=== PATIENT | female | born 1970 | race Caucasian/White ===

== ENCOUNTER 2017-07-28 13:02 | Emergency (ER) | payer BC, OTHER ==
[2017-07-28 13:06] VITALS: BP 199/93; PULSE 85; RESP 20; TEMP 98
[2017-07-28] MEDS ORDERED: DIPH,PERTUS(ACELL)TETVAC-LF 0.5 ML VIAL IM ONE (13:26)
--- NOTE | 2017-07-28 13:29 | ED ---
General Adult HPI - General Chief complaint: Wound/Laceration Stated complaint: laceration Time Seen by Provider: 07/28/17 13:07 Source: patient, RN notes reviewed Mode of arrival: ambulatory Limitations: no limitations - History of Present Illness Initial comments: 47-year-old female presents to the emergency department for a chief complaint of laceration on the dorsal right hand times one hour. Patient states she was walking when her hand caught on an old nail. Patient is right-hand dominant. Patient denies any other injuries. Patient denies falling or hitting her head. Patient states her tetanus is not up-to-date. Patient states she can move all her fingers and her left hand. Patient has no other complaints at this time including shortness of breath, chest pain, abdominal pain, nausea or vomiting, headache, or visual changes. - Related Data Home Medications Medication Instructions Recorded Confirmed No Known Home Medications [No 07/28/17 07/28/17 Known Home Medications] Allergies Allergy/AdvReac Type Severity Reaction Status Date / Time No Known Allergies Allergy Verified 07/28/17 13:06 Review of Systems ROS Statement: Those systems with pertinent positive or pertinent negative responses have been documented in the HPI. ROS Other: All systems not noted in ROS Statement are negative. Past Medical History Past Medical History: No Reported History History of Any Multi-Drug Resistant Organisms: None Reported Past Surgical History: No Surgical Hx Reported Past Psychological History: No Psychological Hx Reported Smoking Status: Former smoker Past Alcohol Use History: None Reported Past Drug Use History: None Reported General Exam Limitations: no limitations General appearance: alert, in no apparent distress Respiratory exam: Present: normal lung sounds bilaterally. Absent: respiratory distress, wheezes, rales, rhonchi, stridor Cardiovascular Exam: Present: regular rate, normal rhythm, normal heart sounds. Absent: systolic murmur, diastolic murmur, rubs, gallop, clicks Extremities exam: Present: full ROM (Full flexion and extension of all digits in the right hand. Full flexion extension and rotation of the right wrist.), normal capillary refill (Refill less than 2 seconds in the right upper extremity. Radial pulse 2+ in the right upper extremity.), other (There is a 4 cm L-shaped flap laceration on the mid dorsal aspect of the right hand. Deep structures intact.). Absent: tenderness (No tenderness in the hand besides over the laceration.), joint swelling Course Vital Signs 07/28/17 13:04 Temperature 98.0 F Pulse Rate 85 Respiratory 20 Rate Blood Pressure 199/93 O2 Sat by Pulse 98 Oximetry Procedures - Procedures Initial comment: Body area: Dorsal right hand Laceration length: 4 cm Foreign bodies: no foreign bodies Tendon involvement: none Nerve involvement: none Vascular damage: no Anesthesia: local infiltration Local anesthetic: 5 mL 1% lidocaine Preparation: Patient was prepped and draped in the usual sterile fashion. Irrigation solution: saline , soaked in soap and iodine Irrigation method: Saline jet lavage Skin closure:5-0 Ethilon using sterile technique Number of sutures: 8 Technique: interupted Dressing: antibiotic ointment/ gauze Patient tolerance: Patient tolerated the procedure well with no immediate complications. Medical Decision Making - Medical Decision Making 47-year-old female presents to the emergency department for a chief complaint of laceration to the dorsal right hand about one hour ago. Patient denies any pain in the right hand besides the laceration site and has full range of motion of all digits in the right hand. Neurovascular intact. Sensation intact. X- ray demonstrates no acute fractures or dislocations or foreign bodies. Wound was cleaned and sutured with 8 sutures. Bacitracin and gauze were applied. Patient was given a tetanus in the emergency Department. Patient will follow up with primary care in 1-2 days. She will return to the emergency department in 7-10 days to have sutures removed. She will return earlier if she notices any signs of infection or fever. Disposition Clinical Impression: Laceration Disposition: HOME SELF-CARE Condition: Good Instructions: Care For Your Stitches (ED), Laceration (ED) Additional Instructions: Please return to the emergency department if you have any signs of infection or worsening symptoms. Return in 7-10 days to have sutures removed. Follow up with primary care provider in one to 2 days. Is patient prescribed a controlled substance at d/c from ED?: No Referrals: Huber Li DO [Primary Care Provider] - 1-2 days Time of Disposition: 14:08
--- NOTE | 2017-07-28 13:37 | XR ---
EXAMINATION TYPE: XR hand complete RT , 3 VIEWS DATE OF EXAM ORDERED: 07/28/2017 HISTORY: Laceration. COMPARISON: None. FINDINGS: No fracture, dislocation or radiopaque foreign body is seen. IMPRESSION: NORMAL RIGHT HAND.
== END 2017-07-28 14:20 | disposition home or self-care (01) ==
LOC: EC 13:02
DX: S61.411A Laceration without foreign body of right hand, initial encounter (principal); Z23 Encounter for immunization; Z87.891 Personal history of nicotine dependence; W45.0XXA Nail entering through skin, initial encounter; Y92.89 Other specified places as the place of occurrence of the external cause
CPT/HCPCS: 12002; 90471; 90715; 99283

== ENCOUNTER 2018-02-28 05:29 | Day surgery (SDC) | payer BC ==
[2018-02-27 11:02] VITALS: BMI 29.7
--- NOTE | 2018-02-27 12:31 | P.HPOB ---
History of Present Illness H&P Date: 02/27/18 Chief Complaint: Dysfunctional uterine bleeding. This patient is a pleasant 47-year-old 2 para 2 female who presented to me with complaints of heavy irregular vaginal bleeding. Patient states that her periods were normal until October when she began bleeding for about 5 weeks straight. She is bleeding heavy sometimes going through 1 tampon per hour. Patient's evaluations included a transvaginal ultrasound which showed endometrial thickening and an endometrial biopsy which was normal. Patient I discussed further management she wishes to proceed with hysteroscopy, D&C, and NovaSure endometrial ablation at this time. Review of Systems Genitourinary: Reports abnormal vaginal bleeding Menstruation: Reports menses variable, Reports period heavy Past Medical History Past Medical History: No Reported History Additional Past Medical History / Comment(s): MENORRHAGIA History of Any Multi-Drug Resistant Organisms: None Reported Past Surgical History: Breast Surgery Past Anesthesia/Blood Transfusion Reactions: No Reported Reaction Past Psychological History: No Psychological Hx Reported Smoking Status: Former smoker Past Alcohol Use History: None Reported Past Drug Use History: None Reported - Past Family History Father Family Medical History: Cancer Additional Family Medical History / Comment(s): BLADDER Medications and Allergies Home Medications Medication Instructions Recorded Confirmed Type No Known Home Medications 07/28/17 02/27/18 History Allergies Allergy/AdvReac Type Severity Reaction Status Date / Time No Known Allergies Allergy Verified 02/27/18 10:56 Exam Intake and Output 02/26/18 02/27/18 02/27/18 22:59 06:59 14:59 Other: Weight 86.183 kg - OBG Physical Exam Abdomen: bowel sounds normal, no diffuse tenderness, no bruit present, no guarding noted, no hepatomegaly, no splenomegaly, no mass Vulva: both: normal Vagina: normal moisture, no discharge Cervix: no lesion, no discharge Uterus: normal size, normal contour Results Transvaginal ultrasound on January 31 showed endometrial thickening and a retroverted uterus. Endometrial biopsy showed inactive to weakly proliferative endometrium. Assessment and Plan Assessment: This is a pleasant 47-year-old 2 para 2 female with refractory dysfunctional uterine bleeding and endometrial thickening. Evaluation thus far otherwise has been normal. Plan is hysteroscopy, D&C, and NovaSure endometrial ablation. Patient have discussed the surgery and risks including risks of infection, bleeding, possible uterine perforation, and/or thermal injury. All the patient's questions have been answered and a written consent is obtained. (1) Dysfunctional uterine bleeding Status: Chronic Code(s): N93.8 - OTHER SPECIFIED ABNORMAL UTERINE AND VAGINAL BLEEDING SNOMED Code(s): 18098194
[~2018-02-28 05:29] MED LIST: Pre Op ABX Message 1 EACH MISC MISCELLANE ONE
[2018-02-28] MEDS ORDERED: DEXAMETHASONE SOD PHOSPHATE 10 MG/ML 1 ML VIAL IV ONE (05:46)
[2018-02-28] MEDS ORDERED: MIDAZOLAM 2 MG/2 ML VIAL IV PRN (05:46)
[2018-02-28] MEDS ORDERED: SCOPOLAMINE 1.5MG/72HR PATCH TRANSDERM ONE (05:46)
[2018-02-28] MEDS ORDERED: ONDANSETRON 4 MG/2 ML VIAL IVP ONE (05:46)
[2018-02-28] MEDS ORDERED: HYDROmorphone 1 MG/ML 1 ML SYRINGE IVP PRN (05:46)
[2018-02-28] MEDS ORDERED: LACTATED RINGERS 1,000 ML IV SCH (05:46)
[2018-02-28] MEDS ORDERED: LIDOCAINE 1% 20 ML VIAL (10MG/ML) FOR IV START INTRADERMA ONE (06:11)
[2018-02-28] MEDS ORDERED: fentaNYL (PF) 50 MCG/ML 2 ML AMP ONE (06:50)
[2018-02-28] MEDS ORDERED: LIDOCAINE 1% INJ 10MG/ML (20 ML MDV) ONE (06:50)
[2018-02-28] MEDS ORDERED: PROPOFOL 10 MG/ML 20 ML VIAL IV ONE (06:50)
[2018-02-28] MEDS ORDERED: KETOROLAC 30 MG/ML 1 ML VIAL ONE (06:50)
[2018-02-28] MEDS ORDERED: MIDAZOLAM 2 MG/2 ML VIAL ONE (06:50)
--- NOTE | 2018-02-28 07:36 | P.OP ---
Date of Procedure: 02/28/18 Preoperative Diagnosis: Dysfunctional uterine bleeding Postoperative Diagnosis: Same Procedure(s) Performed: #1: Hysteroscopy. #2: Dilation and curettage. #3: NovaSure endometrial ablation Anesthesia: MAC Surgeon: Kvng Richards Estimated Blood Loss (ml): 10 Urine output (ml): 50 Pathology: other (Endometrial curettings) Condition: stable Disposition: PACU Indications for Procedure: Please see dictated H&P for intimate details of this patient's admission. Brief summary this is a pleasant 7-year-old female who is having dysfunctional uterine bleeding and menorrhagia. Patient's evaluations included an ultrasound which showed some endometrial thickening and also an endometrial biopsy which was normal. Patient now presents for hysteroscopy D&C and endometrial ablation. She'll have discussed the surgery and risks including risks of infection, bleeding, possible uterine perforation, and/or thermal injury. All the patient's questions are answered written consent is obtained. Operative Findings: This patient had an enlarged uterus with a small benign-appearing polyp in the uterine cavity Description of Procedure: This patient is taken to the operating room where she is laid in the supine position. She subsequently undergoes general mask anesthesia without incident. With an adequate level of anesthesia she's placed in dorsal lithotomy position. She has a vaginal perineal prep and drape. Examination under anesthesia shows a retroverted uterus. I first placed a weighted speculum posterior vagina. The bladder is drained this time for 50 mL of clear urine. I placed an Allis clamp and the anterior lip of the cervix. The uterus is then sounded to 10.5 cm retroverted. Gentle dilation is then done at this time to allow the hysteroscope easily and the uterine cavity. Hysteroscopy is performed and there is a small endometrial polyp noted anteriorly. This appears benign. The hysteroscope was then removed the endometrial cavity is measured to be 6.5 cm. With this done the cervix is dilated more to allow polyp forceps into the uterine cavity. I am able to remove piecemeal this polyp. A gentle but vigorous 4 Quadrant curettage is then done for adequate sampling. With this completed the NovaSure device is then opened appears to be intact. It is set at a length of 6.5 cm and then seated in place and a width of 4.8 cm. After passing the cavity integrity test, is enabled for 50 seconds at [address]. NovaSure device is then removed and appears to be intact. Hysteroscopy is then performed again and the endometrial cavity appears to be ablated up to the endocervix. Excellent results are noted. At this point the procedure is ended. All counts correct 3. There are no complications. Patient is awakened from anesthesia and taken recovery room satisfactory condition.
[2018-02-28 07:44] VITALS: TEMP 97.1
[2018-02-28 08:44] VITALS: RESP 18
[2018-02-28 09:00] VITALS: PULSE 59
[2018-02-28 09:27] VITALS: BP 180/99
== END 2018-02-28 09:34 | disposition home or self-care (01) ==
LOC: OR 05:29
PROVIDERS: ATTEND Obstetrics & Gynecology
DX: N84.0 Polyp of corpus uteri (principal); N93.8 Other specified abnormal uterine and vaginal bleeding; N92.0 Excessive and frequent menstruation with regular cycle; R93.89 Abnormal findings on diagnostic imaging of other specified body structures; N85.4 Malposition of uterus; K21.9 Gastro-esophageal reflux disease without esophagitis; Z79.1 Long term (current) use of non-steroidal anti-inflammatories (NSAID); Z87.891 Personal history of nicotine dependence
CPT/HCPCS: 81025; 88305; 58563; J2250; J1100; J2405; J2001; J3010; J1885; J2704

== ENCOUNTER 2023-08-17 09:06 | Emergency (ER) | payer BC ==
[2023-08-17 09:14] VITALS: RESP 18
[2023-08-17] MEDS: KETOROLAC 15 MG/ML 1 ML VIAL IM STA (09:35)
--- NOTE | 2023-08-17 09:38 | XR ---
EXAMINATION TYPE: XR shoulder complete LT DATE OF EXAM: 08/17/2023 COMPARISON: NONE HISTORY: Pain TECHNIQUE: Left Shoulder examined in 3 projections. FINDINGS: The humeral head articulates with the glenoid. The acromio-clavicular junction is normal. No acute fractures or dislocations are evident. A follow up study can be performed 7-10 days from acute trauma for continued pain. MRI can be perfor med if soft tissue evaluation would be of benefit. IMPRESSION: 1. No acute osseous left shoulder abnormality.
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
[2023-08-17 10:53] VITALS: BP 126/95; PULSE 74; TEMP 98.1
== END 2023-08-17 10:30 | disposition home or self-care (01) ==
LOC: EC 09:06
DX: S49.92XA Unspecified injury of left shoulder and upper arm, initial encounter (principal); V29.91XA Electric (assisted) bicycle rider (driver) (passenger) injured in unspecified traffic accident, initial encounter; Y93.55 Activity, bike riding
CPT/HCPCS: 73030; 99283; 96372; J1885